=== PATIENT | female | born 1975 ===

== ENCOUNTER → 2017-10-27 | Outpatient (CLI) | payer OTHER | LOC: COL.RAD 06:52 | DX: R51 Headache (principal); R20.0 Anesthesia of skin | CPT/HCPCS: Q9967 ==

== ENCOUNTER → 2021-07-29 | Outpatient (CLI) | payer OTHER | LOC: MC.RAD 08:43 | DX: Z12.31 Encounter for screening mammogram for malignant neoplasm of breast (principal) ==